=== PATIENT | male | born 1960 | race African-American/Black ===

== ENCOUNTER 2018-04-11 07:12 | Inpatient (IN) | payer OTHER ==
--- NOTE | 2018-04-10 16:53 | GHP ---
DATE OF ADMISSION: 04/11/2018 ADMISSION DIAGNOSIS: Adenocarcinoma of the prostate. HISTORY OF PRESENT ILLNESS: This is a 57-year-old gentleman who was referred to [facility] by Ra nanci Rocha. He has had general urinary tract symptoms with nocturia which has been present for several months, and he had a PSA that was 8.3 as of January 03, 2018, and he had had an original AUA score of 9 , postvoid residual of 0, and he has a [place] score 7 prostate cancer with a PSA density of 0.12 and prostate volume 45 g by ultrasound. He has been informed of the diagnosis, stage, grade, and option s of treatment, and he has elected to undergo a robotic-assisted radical prostatectomy with pelvic ly mph node dissection as noted. His pathology revealed that he had a [place] score 7, WHO grade group 2. The maximum tumor size was in the left transition zone at 40% involving 1 of the 2 cores and the pattern 4 involved 20% of the core. PAST MEDICAL HISTORY: Elevated PSA, hypertension. PAST SURGERIES: Tendon surgery and the ultrasound with biopsy. MEDICATIONS: Lisinopril. ALLERGIES: None. FAMILY HISTORY: Hypertension, colon cancer, and diabetes. SOCIAL HISTORY: Moderate alcohol consumption. Nonsmoker. REVIEW OF SYSTEMS: Negative cardiac, respiratory, GI, and endocrine. PHYSICAL EXAMINATION: VITAL SIGNS: Stable. CHEST: Clear. HEART: Regular rate and rhythm. ABDOM EN: Normal. No organomegaly, rebound, or guarding. LOWER EXTREMITIES: Normal. RECTAL: He had fulton d a rectal exam prior to the evaluation that showed he had a firm prostate, but no specific nodules. At the present time, he is admitted for the bilateral pelvic lymphadenectomy and radical retropubic prostatectomy with lymph node dissection. /[id number]/MODL
[2018-04-11] MEDS ORDERED: LR 1,000 ML IV ONE (07:20)
[2018-04-11] MEDS ORDERED: ceFAZolin 2 GM/DEXTROSE 100 ML IV ONE (07:20)
[2018-04-11] MEDS ORDERED: LIDOCAINE 1% 2 ML INJ ID ONE (07:21)
--- NOTE | 2018-04-11 07:24 | PDHPUP ---
History & Physical Update H&P update statement: This history and physical update is based on an assessment of the patient which was completed after admission or registration (within 24 hours), but prior to the surgery/procedure. H&P update: H&P reviewed & patient examined, no change in patient's condition since H&P completed
[2018-04-11] MEDS ORDERED: MIDAZOLAM 2 MG/2 ML VIAL IVP ONE (08:35)
--- NOTE | 2018-04-11 08:35 | PDANEPAE ---
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 ANE Past Medical History - Cardiovascular History Hx Hypertension: Yes Hx Arrhythmias: No Hx Chest Pain: No Hx Coronary Artery / Peripheral Vascular Disease: No Hx CHF / Valvular Disease: No Hx Palpitations: No - Pulmonary History Hx COPD: No Hx Asthma/Reactive Airway Disease: No Hx Recent Upper Respiratory Infection: No Hx Oxygen in Use at Home: No Hx Sleep Apnea: No Sleep Apnea Screening Result - Last Documented: Positive Pulmonary History Comment: BRITTNEY triggers only - Neurologic History Hx Cerebrovascular Accident: No Hx Seizures: No Hx Dementia: No - Endocrine History Hx Diabetes: No - Renal History Hx Renal Disorders: No - Liver History Hx Hepatic Disorders: No - Neurological & Psychiatric Hx Hx Neurological and Psychiatric Disorders: No - Cancer History Hx Cancer: Yes Cancer History Comment: prostate CA - Congenital Disorder History Hx Congenital Disorders: No - GI History Hx Gastrointestinal Disorders: No - Other Health History Other Health History: none - Chronic Pain History Chronic Pain: No - Surgical History Prior Surgeries: torn ligamets/tendons repaired in right thumb, 1984 ANE Review of Systems Review of Systems: - Exercise capacity METS (RN): 4 METS ANE Patient History - Allergies Allergies/Adverse Reactions: No Known Allergies Allergy (Verified 03/28/18 15:05) - Home Medications Home Medications: Lisinopril [Zestril 10 mg (*)] 10 mg PO DAILY 03/22/18 [Last Taken 04/10/18 19: 00] - NPO status NPO Status: no food or drink >8 hours - Anes Hx Anes Hx: no prior problems - Smoking Hx Smoking Status: Never smoked - Alcohol Use Alcohol Use: Rarely - Family Anes Hx Family Anes Hx: none Family Hx Anesthesia Complications: none ANE Labs/Vital Signs - Vital Signs Height: 182.88 cm Weight: 81.647 kg ANE Physical Exam - Airway Neck exam: FROM Mallampati Score: Class 2 Mouth exam: normal dental/mouth exam - Pulmonary Pulmonary: no respiratory distress, clear to auscultation - Cardiovascular Cardiovascular: regular rate and rhythym, no murmur, rub, or gallop - ASA Status ASA Status: II ANE Anesthesia Plan Anesthesia Plan: general endotracheal anesthesia
[2018-04-11] MEDS ORDERED: LIDOCAINE 2% 100 MG/5 ML SYR ONE (08:40)
[2018-04-11] MEDS ORDERED: PROPOFOL 200 MG/20 ML VIAL ONE (08:40)
[2018-04-11] MEDS ORDERED: fentaNYL 100 MCG/2 ML INJ ONE ×3 (08:40→12:09)
[2018-04-11] MEDS ORDERED: ROCURONIUM 100 MG/10 ML VIAL ONE (08:40)
[2018-04-11] MEDS ORDERED: BUPIVACAINE 0.5% 30 ML SDV ONE (09:01)
[2018-04-11] MEDS ORDERED: ONDANSETRON 4 MG/2 ML VIAL ONE (09:20)
[2018-04-11] MEDS ORDERED: DEXAMETHASONE 4 MG/ML VIAL ONE (09:20)
[2018-04-11] MEDS ORDERED: ROCURONIUM 50 MG/5 ML VIAL ONE (11:04)
[2018-04-11] MEDS ORDERED: THROMBIN(HUM PLAS)/FIBRINOG/CA 5 ML VIAL TP ONE (11:23)
[2018-04-11] MEDS ORDERED: ONDANSETRON DISINTEGRATING 4 MG TAB PO PRN (11:59)
[2018-04-11] MEDS ORDERED: ONDANSETRON 4 MG/2 ML VIAL IVP PRN ×2 (11:59→12:04)
[2018-04-11] MEDS ORDERED: ZOLPIDEM TARTRATE 5 MG TAB PO PRN (11:59)
--- NOTE | 2018-04-11 12:00 | POSTOPPROG ---
Post Op Note Date of Operation: 04/11/18 (dictated) Surgeon: Maurice Valverde Marine Structural Welder: Pato Anesthesiologist: Devika Anesthesia: GET(General Endotracheal) Pre-op Diagnosis: prostate cancer Procedure: RA-RRP and PLND Inf/Abcess present in the surg proc area at time of surgery?: No EBL: 50-100 Drains: Brandt Kaur, Other (ann) Specimen(s): sent
[2018-04-11] MEDS ORDERED: NALOXONE HCL 0.4 MG/ML INJ IVP PRN (12:04)
[2018-04-11] MEDS ORDERED: oxyCODONE IR 5 MG TAB PO PRN (12:04)
[2018-04-11] MEDS ORDERED: ACETAMINOPHEN 500 MG TAB PO PRN (12:04)
[2018-04-11] MEDS ORDERED: HYDROCODONE/APAP 5/325 TAB PO PRN (12:04)
[2018-04-11] MEDS ORDERED: PROMETHAZINE HCL 25 MG/ML INJ IVP PRN (12:04)
--- NOTE | 2018-04-11 12:05 | POSTANESTH ---
Post Anesthetic Evaluation Cardiovascular Status: Normal, Stable, Similar to Pre-Op Cond Respiratory Status: Normal, Stable, Similar to Pre-op Cond. Level of Consciousness/Mental Status: Can Participate in Eval, Alert and Oriented Pain Control: Adequate, Prn Tx Ordered Nausea/Vomiting Control: Adequate, Prn Tx Ordered Complications Possibly Related to Anesthesia: None Noted
[2018-04-11] MEDS: fentaNYL 100 MCG/2 ML INJ IVP PRN ×2 (12:12→12:21)
[2018-04-11] MEDS ORDERED: HYDROmorphONE/DILAUDID 2 MG/ML INJ ONE (12:23)
[2018-04-11] MEDS: HYDROmorphONE/DILAUDID 2 MG/ML INJ IVP PRN ×2 (12:30→12:48)
--- NOTE | 2018-04-11 13:23 | GOP ---
DATE OF OPERATION: SURGEON: Maurice Valverde MD ROAD FREIGHT CONDUCTOR: Yojana Whyte CFA. ANESTHESIA: General anesthesia. ANESTHESIOLOGIST: Gavino Fortune MD. PREOPERATIVE DIAGNOSIS: Prostate cancer. POSTOPERATIVE DIAGNOSIS: Prostate cancer. PROCEDURE PERFORMED: Radical retropubic prostatectomy, robotically assisted, bilateral pelvic lymph node dissection. FINDINGS: DESCRIPTION OF PROCEDURE: After undergoing general anesthesia appropriately placed for the robotic p rocedure, all sites padded. Appropriate time-out, prepped and draped in normal sterile fashion. A c atheter placed atraumatically and then a Veress needle was placed in the supraumbilical site, inflate d to 15 mmHg pressure with CO2, and then at that point, strategically placed the camera port under di rect vision and the 3 robot arm ports, and the anesthesiology physician assistant port. At that point, the robot was docked. It was initiated by taking down the adhesions of the sigmoid colon that were in the pelvis and the l eft iliac fossa. Then I was able to bring the colon out of the pelvis and identify the vas deferens bilaterally and carried the dissection of the peritoneum over those. This was carried down to where they went into the prostate and dissection anterior and posterior to the ampulla vas deferens, the se tanya vesicles. Hemostasis provided with Hem-o-loks and electrocautery bipolar. the space between the rectum and the prostate and then the vas deferens was then divided an d lateral dissection was made. I dropped the bladder back down at that point after taking down the u rachus and the obliterated umbilical vessels and then identified the endopelvic fascia on the right a nd left sides and incised that. Took the puboprostatic ligaments down sharply. The deep dorsal vein was ligated with two #0 Vicryl sutures. Focused attention to the bladder neck which was incised and attempted to preserve the circular fibers of the bladder neck through the dissection. After enterin g the bladder anteriorly, identified the bladder neck and incised the posterior bladder neck. Was ab le to do that dissection between the base of the prostate and the base of the bladder. Brought the s eminal vesicles, ampulla vas deferens anterior to the bladder neck, and then on the left neurovascula r bundle made a significant attempt to preserve that structure. Hem-o-loks were used for hemostasis and that was carried down to the lateral side of the urethra. Then on the right side, similar issues and attempts to preserve the neurovascular bundle. At the apex on the right side, he had a bit more inflammation and grossly it appeared that there was no incision of the prostatic capsule and no bernard s malignancy beyond the capsule. At that point, I cut the anterior urethra and then the posterior urethra and at the urethra, it appea red that margin was clear. Then the James stitch and anastomosis was performed with a running 3-0 V- loc. It was bridged with a 20-Latvian catheter and it irrigated well and clear. The lymph node disse ction was carried out using the margins of the mid aspect of the external iliac vein, obturator nerve in the depth, and it was carried up to the bifurcation of the iliac vessels. Hem-o-loks were used t o provide hemostasis. At the end, let the pressure down to 5 mmHg and there was no welling or bleedi ng. There was no staining with respect to the bowel's appearance. The specimens were bagged and elda kim and then used Evicel over the anastomotic site area. A BARBARA drain was placed to drain the anastomo sis, brought out through the left 8 mm robot port, and then after undocking the robot, the anesthesiology physician assistant port was closed with a fascial closure device, 0 Vicryl, and then we extended the abdominal incision to the point from right to left, so we could retract the bag containing the prostate specimen. Then the fascial layer was approximated with a running 0 Vicryl and it was hemostatic. The subcutaneous t issue was hemostatic. The skin was approximated at all sites with 4-0 Monocryl and drain was sewn in place with 3-0 silk. He tolerated the procedure well. He will be admitted for postoperative care. I will discuss the issues with his family and specimen sent for Pathology. After estimated blood lo ss was on the lines of 50 mL per Anesthesia. /[id number]/MODL
[2018-04-11] MEDS: D5W LR 1,000 ML IV SCH (14:00)
[2018-04-11] MEDS ORDERED: HYDROmorphONE/DILAUDID 1 MG/ML INJ IVP PRN (14:42)
--- NOTE | 2018-04-11 15:27 | ASMTCMCOM ---
CM Note CM Note Notes: Patient is POD #0 RA radical prostatectomy w pelvic lymph node dissection. He is stable and doing well. Patient is normally independent and lives with his . I do not anticipate any discharge needs. Date Signed: 04/11/2018 03:26 PM Electronically Signed By:Chanell Snider RN
--- NOTE | 2018-04-11 16:55 | SOAPPROG ---
SOAP Progress Note Assessment/Plan: Assessment: Prostate cancer Acute PO check, doing well, cath irrigated and no problems, give fluid bolus Plan: as noted 04/11/18 16:54 Subjective: doing well, bladder spasms Objective: Vital Signs Temp Pulse Resp BP Pulse Ox 37.2 C 61 16 116/69 96 04/11/18 16:49 04/11/18 16:49 04/11/18 16:49 04/11/18 16:49 04/11/18 16:49 04/10/18 04/11/18 04/12/18 05:59 05:59 05:59 Intake Total 660 Output Total 250 Balance 410 Physical Exam - Physical Exam General Appearance: alert Respiratory: No respiratory distress Cardiac/Chest: regular rate, rhythm Abdomen: soft Male Genitalia: other (irrigated cath and draining well) Neuro/Psych: alert, oriented x 3 ICD10 Worksheet Patient Problems: Problems Problem Status Onset Prostate cancer Acute
[2018-04-11] MEDS ORDERED: NS 500 ML IV ONE (17:00)
[2018-04-11] MEDS: ACETAMINOPHEN 325 MG TAB PO PRN (19:55)
[2018-04-12 05:22] LABS: PLATELET COUNT 255 10^3/uL (150-400)
[2018-04-12] MEDS: ACETAMINOPHEN 325 MG TAB PO PRN (06:07)
[2018-04-12] MEDS: D5W LR 1,000 ML IV SCH (06:08)
--- NOTE | 2018-04-12 08:02 | SOAPPROG ---
SOAP Progress Note Assessment/Plan: Assessment: Prostate cancer Acute POD#1 good UO, HCT normal, BARBARA out Plan: DC home 04/12/18 13:18 Subjective: ok and desires DC Objective: Vital Signs Temp Pulse Resp BP Pulse Ox 37.5 C 74 16 125/76 H 97 04/12/18 04:37 04/12/18 04:37 04/12/18 04:37 04/12/18 04:37 04/12/18 04:37 Laboratory Results 04/12/18 05:05 04/12/18 05:05 04/11/18 04/12/18 04/13/18 05:59 05:59 05:59 Intake Total 2714 1194 Output Total 3370 Balance -656 1194 new HCT >40% Physical Exam - Physical Exam General Appearance: alert Neck: supple Respiratory: No respiratory distress Cardiac/Chest: regular rate, rhythm Abdomen: soft Back: No CVA tenderness Extremities: Niki's sign, No calf tenderness Neuro/Psych: alert, oriented x 3 ICD10 Worksheet Patient Problems: Problems Problem Status Onset Prostate cancer Acute
[2018-04-12] MEDS ORDERED: FUROSEMIDE 20 MG/2 ML VIAL IVP ONE (08:08)
--- NOTE | 2018-04-12 11:17 | PDMN ---
Medical Necessity Medical necessity: Pt meets inpt criteria per MD order and [facility] [id number], Prostatectomy, Radical, auth # [id number], approved. 57 y/o admitted for radical prostatectomy and pelvic lymph node dissection, post op day#1 low H&H 8.2, 23.3 , med nec ongoing monitoring and treatment.
[2018-04-12 15:46] VITALS: BP 112/70
== END 2018-04-12 16:32 | disposition home or self-care (01) | DRG 708 ==
LOC: F3E 07:12 → F1N 14:08
PROVIDERS: ADMIT Specialist; ATTEND Specialist
PROC: 0VT04ZZ Resection of Prostate, Percutaneous Endoscopic Approach (ICD-10-PCS; principal; 2018-04-11 09:00)
PROC: 0VT34ZZ Resection of Bilateral Seminal Vesicles, Percutaneous Endoscopic Approach (ICD-10-PCS; principal; 2018-04-11 09:00)
PROC: 8E0W4CZ Robotic Assisted Procedure of Trunk Region, Percutaneous Endoscopic Approach (ICD-10-PCS; principal; 2018-04-11 09:00)
PROC: 0VBQ4ZZ Excision of Bilateral Vas Deferens, Percutaneous Endoscopic Approach (ICD-10-PCS; principal; 2018-04-11 09:00)
DX: C61 Malignant neoplasm of prostate (principal); I10 Essential (primary) hypertension
CPT/HCPCS: J0690; J1100; J1170; J1940; J2001; J2250; J2405; J2704; J3010

== ENCOUNTER 2018-04-14 09:09 | Emergency (ER) | payer OTHER ==
[2018-04-14 09:14] VITALS: BP 122/74
--- NOTE | 2018-04-14 09:28 | EDPHY ---
H & P Stated Complaint: Graham leaking/possible pus in bag. Prostate surg 3 days ago Time Seen by Provider: 04/14/18 09:16 - Personal History Current Tetanus Diphtheria and Acellular Pertussis (TDAP): Yes - Medical/Surgical History Hx Diabetes: No Other PMH: prostate CA w/DaVinci prostactectomy 04/04. HTN - Social History Smoking Status: Never smoked Constitutional: Initial Vital Signs Temperature (C) 37 C 04/14/18 09:10 Heart Rate 75 04/14/18 09:10 Respiratory Rate 16 04/14/18 09:10 Blood Pressure 122/74 H 04/14/18 09:10 O2 Sat (%) 97 04/14/18 09:10 O2 Delivery Mode Room Air Allergies/Adverse Reactions: No Known Allergies Allergy (Verified 04/14/18 09:10) Home Medications: Medication Instructions Recorded Lisinopril [Zestril 10 mg (*)] 10 mg PO DAILY 03/22/18 Medical Decision Making ED Course/Re-evaluation: CHIEF COMPLAINT: Catheter leakage HISTORY OF PRESENT ILLNESS: The patient is a 57 y/o male who had a prostatectomy three days ago for prostate cancer who arrives with his complaining of urinary leakage and possible purulent discharge from his catheter onset yesterday. He feels like the leg bag may be on too low and is pulling on the catheter. This is most noticeable when sitting down. He says in general, "I feel great." He denies pain, fever, bleeding. Dr. Valverde, urologist performed the procedure and he is scheduled to follow up with him in a week. REVIEW OF SYSTEMS: A 10 point review of systems was performed and is negative with the exception of the elements mentioned in the history of present illness. PHYSICAL EXAM: HR, BP, O2 Sat, RR. Temp noted General Appearance: Alert, well hydrated, appropriate, and non-toxic appearing. Head: Atraumatic without scalp tenderness or obvious injury Eyes: Pupils equal, round, reactive to light and accommodation, EOMI, no trauma , no injection. Nose: Atraumatic, no rhinorrhea, clear. Throat: Mucus membranes moist. Neck: Supple,non-tender, no lymphadenopathy. Respiratory: No retractions, no distress, no wheezes, and no accessory muscle use. Lungs are clear to auscultation bilaterally. Cardiovascular: Regular rate and rhythm, no murmurs, rubs, or gallops. Good capillary refill all extremities. Gastrointestinal: Abdomen is soft, non-tender, non-distended, no masses, no rebound, no guarding, no peritoneal signs. G/U: Small quantity of blood-tinged urine leaking around catheter and in leg bag. Otherwise normal male genitalia. Musculoskeletal: Normal active ROM of all extremities, atraumatic. Neurological: Alert, appropriate, and interactive. The patient has non-focal cranial nerves, motor, sensory, and cerebellar exam. Skin: No rashes, good turgor, no nodules on palpation. PAST MEDICAL HISTORY: Prostate cancer PAST SURGICAL HISTORY: Prostatectomy 03/2018- Dr. Jim Valverde SOCIAL HISTORY: at bedside. Lives in [place]. Employed. DIFFERENTIAL DIAGNOSIS: The differential diagnosis for the patient's symptoms included but was not limited to Graham complication, prostatectomy side effect, medication side effect, neurologic causes, outflow obstruction, and infection. MEDICAL DECISION MAKING: This is a 57 y/o male who presents with mild urinary leakage around his Graham catheter 3 days post prostatectomy. He has no pain or other symptoms. On inspection he has a small quantity of blood-tinged urine leaking around the catheter and blood-tinged urine in the leg bag, but otherwise has a normal exam. Plan to readjust leg bag and have him follow up with his urologist as needed. No indication for other interventions at this time. He is comfortable with this plan. Return precautions discussed. Departure - Departure Disposition: Home, Routine, Self-Care Clinical Impression: Graham catheter in place Condition: Good Instructions: Graham Catheter Placement and Care (ED) Additional Instructions: Follow up with Dr. Valverde as scheduled. Return to the ED for severe pain, bleeding, inability to urinate, or other worsening of condition. Referrals: Dorothy Rocha MD [Primary Care Provider] - As per Instructions Maurice Valverde MD [Medical Doctor] - As per Instructions Report Scribed for: Daniel Shah Report Scribed by: Catarina Vitale Date of Report: 04/14/18 Time of Report: 09:41
== END 2018-04-14 09:47 | disposition home or self-care (01) ==
DX: T83.038A Leakage of other urinary catheter, initial encounter (principal); Z90.79 Acquired absence of other genital organ(s); Z98.890 Other specified postprocedural states